=== PATIENT | male | born 1975 | race Two or more races ===

== ENCOUNTER 2022-10-17 16:56 | Emergency (ER) | payer OTHER ==
[~2022-10-17] VITALS: Ht 157.5 cm; Wt 69.8 kg
[2022-10-17] MEDS ORDERED: NORCO, ANEXSIA 5/325MG TABLET (HYDROcodone/ACETAMINOPHEN) PO ONE (21:55)
[2022-10-17] MEDS ORDERED: NORCO 5/325MG TABLET (HOME DOSE PACK) PO ONE (21:55)
[2022-10-17 21:56] VITALS: BP 142/98
== END 2022-10-17 22:23 | disposition home or self-care (01) ==
LOC: M ED 16:56
DX: S42.111A Displaced fracture of body of scapula, right shoulder, initial encounter for closed fracture (principal); W01.0XXA Fall on same level from slipping, tripping and stumbling without subsequent striking against object, initial encounter; Y99.0 Civilian activity done for income or pay